=== PATIENT | male | born 1955 | race Caucasian/White ===

== ENCOUNTER → 2016-12-14 | Outpatient (CLI) | payer OTHER ==
--- NOTE | 2016-12-14 11:45 | XR ---
EXAM TYPE: LUMBAR SPINE X RAY SERIES COMPARISON: NONE HISTORY: Lumbar pain TECHNIQUE: 3 views are submitted. FINDINGS: Alignment is anatomic. The pedicles are intact. The transverse processes are intact. There is no s pondylolysis or spondylolisthesis. Hypertrophic changes are seen at all levels. Severe degenerative disc disease L2-3 and L5-S1 with multilevel facet arthropathy. Moderate degenerative disc disease at all remaining levels. IMPRESSION: 1. Multilevel moderate to severe degenerative disc disease with facet arthropathy. Correlate with MRI as clinically warranted..
== END | disposition home or self-care (01) ==
LOC: RADXRMAIN 10:43
PROVIDERS: ATTEND Family Medicine
DX: M51.36 Other intervertebral disc degeneration, lumbar region (principal); M12.88 Other specific arthropathies, not elsewhere classified, other specified site
CPT/HCPCS: 72100

== ENCOUNTER → 2021-01-29 | Outpatient (CLI) | payer MEDICARE ==
--- NOTE | 2021-01-30 22:21 | MR ---
EXAMINATION TYPE: MR lumbar spine wo con DATE OF EXAM: 01/29/2021 COMPARISON: None HISTORY: Chronic LBP. CONTRAST: 0 mL intravenous Gadavist. TECHNIQUE: Multiplanar, multisequence images of the lumbar spine were acquired. FINDINGS: Cord terminates at the T12-L1 level. L5-S1: There is loss of disc height is level. Minimal retrolisthesis of L5 on S1 is present. Disc unc overing is present with mild anterior thecal sac compression. No AP spinal canal stenosis present. Fa cet hypertrophy is present, greater on the right than the left. Ligamentum flavum laxity is present. This is contributing to severe right foraminal stenosis and severe left foraminal stenosis. No AP spi nal canal or lateral canal stenosis is present. L4-L5: There is a large central disc herniation with moderate tor significant anterior thecal sac com pression. This is narrowing the AP spinal canal by 50%. Facet hypertrophy with ligamentum flavum laxi ty is impinging the lateral recesses. Correlate with L5 radicular symptoms. There is central disc he rniation and loss of disc height. Disc herniation extends inferiorly. L3-L4: Broad-based disc bulge is present with anterior thecal sac contact. Right and left far lateral disc bulging is present. Neural foramen have moderate narrowing slightly greater on the left. No AP spinal canal stenosis is present. There is loss of disc height at this level. L2-L3: Loss of disc height is present. There is residual disc bulge with anterior thecal sac contact. No AP spinal canal stenosis is present. Mild foraminal narrowing is present. L1-L2: No significant disc bulge or disc herniation. No spinal canal stenosis. No foraminal stenosi s. Facet hypertrophy is present greater on the left. No significant thecal sac impression is evident . Disc height appears preserved. T12-L1: No significant disc bulge or disc herniation. No spinal canal stenosis. No foraminal stenos is. . IMPRESSION: 1. Large central disc herniation L4-5 with central canal narrowing. This is complicated by some infer ior endplate spurring at all 4. AP spinal canal stenosis is not present by measurement although 50% o f the canal is narrowed. 2. Residual disc changes L2-3 through L5-S1 have anterior thecal sac flattening remaining disc levels . 3. Foraminal stenosis to the lower lumbar spine appears severe at multiple levels discussed above. Co rrelate with radicular symptoms.
== END | disposition home or self-care (01) ==
LOC: RADMRIMAIN 21:30
PROVIDERS: ATTEND Orthopaedic Surgery Orthopaedic Surgery of the Spine
DX: M48.061 Spinal stenosis, lumbar region without neurogenic claudication (principal); M51.26 Other intervertebral disc displacement, lumbar region
CPT/HCPCS: 72148

== ENCOUNTER → 2021-02-26 | Outpatient (CLI) | payer MEDICARE ==
[2021-02-26 12:28] VITALS: TEMP 98.4
[2021-02-26 12:38] VITALS: BP 182/116; PULSE 87; RESP 18
--- NOTE | 2021-02-26 12:51 | P.PAINCN ---
History of Present Illness - Reason for Consult Consult date: 02/26/21 - History of Present Illness This is a 65 years old male with a chronic history of severe low back pain, addition to the right lower extremity patient diagnosed with lumbar doses with lumbar facet arthropathy, lumbar herniated disc disease, she had multiple pain interventions procedure done by Dr. Burroughs, [facility] ,and he had some pain relief after the radiofrequency, patient reported that currently h is pain is mostly in the low back area is constant and increases with any activity, confusion or the quality of life and preventing him from doing activities of daily livings, he denies any fever or night sweats but he denies any motor or sensory deficit, he denies any change in bowel movement or urination, Past Medical History Past Medical History: Hyperlipidemia, Hypertension History of Any Multi-Drug Resistant Organisms: None Reported Past Surgical History: No Surgical Hx Reported Past Anesthesia/Blood Transfusion Reactions: No Reported Reaction Smoking Status: Former smoker Medications and Allergies Home Medications Medication Instructions Recorded Confirmed Type Atorvastatin [Lipitor] 10 mg PO DAILY 02/26/21 02/26/21 History Finasteride [Proscar] 5 mg PO DAILY 02/26/21 02/26/21 History amLODIPine [Norvasc] 2.5 mg PO DAILY 02/26/21 02/26/21 History Physical Exam Vitals: Vital Signs Temp Pulse Resp BP Pulse Ox 02/26/21 12:23 98.4 F 87 18 182/116 94 L Intake and Output 02/25/21 02/26/21 02/26/21 22:59 06:59 14:59 Other: Weight 124.284 kg Physical Examinations : -Constitutiona : Cooperative , not in acute distress . -HEENT : nech : supple , no Lymphadenopathy , normal thyroid size . : eyes : no ptosis , no icterus, no photophobia . - neurologic : Cranial nerve II to XII intact , no focal neurological deffecit . -psychatric : alert , oriented X 3 , appropriate affect , intact judgment and insight . -Lymphatic : no Lymphadenopathy . - musculoskeltal : . Lumber spine moter stegnth lower extremities ,thigh and legs 5/5 Right side , 5/5 Left side deep tendon reflexes : normal Knee Jerk , normal ankle Jerk lumber facet Loading Test =positive Right , positive Left Range of motion of the lumbar spine Flexion 30 degrees, extension 10 degrees strait leg raising test = negative bilaterally Fabere test= negative bilaterally. mild tenderness over the Sacroiliac joint on the Right , and Left sides Results Comments: MRI of the lumbar spine= lumbar spondylosis and lumbar facet arthropathy, L4-L5 large central herniated disc Assessment and Plan Plan: Assessment and plan=1-lumbar spondylosis with facet arthropathy without myelopathy. 2-lumbar herniated disc disease. HE HAD excellent pain relief after RFA of the medial branch lumbar area, patient could benefit from repeat RFA medial branches at L2,L3,L4,L5 bilaterally Time with Patient: Greater than 30 PQRS Measure Charge Sheet Measure #130: Documentation of Current Meds in Medical Chart: Patient's medications documented in chart Measure #226: Tobacco Use: Screen & Cessation Intervention: Pt not a tobacco user Measure #111: Pneumonia Vaccination: Pneumococcal vaccine administered or previously received Measure #47: Advance Care Plan: Advance care planning discussed & documented, pt chose/unable to give Measure #412: Opioid Treatment Agreement: No documentation of signed opioid treatment agreement Measure #408: Opioid Therapy Follow-up Evaluation: Patient had NO f/u eval minimum every 3 months during opioid therapy Measure #317: Preventitive Care & Scrn High Bld Press & F/U: Pre-hypertensive or hypertensive BP documented, pt will f/u with PCP Measure #128: Body Mass Index (BMI) Screening & Follow-up: BMI documented ABOVE normal parameters - f/u documented Measure #131: Pain Assessment & Follow-up: Pain positive & plan documented, Follow-up scheduled Measure #431: Unhealthy Alcohol Use Preventative Care & Scrn: Patient not identified as an unhealthy alcohol user PQRS Narrative: Blood Pressure 182/116 Pain Intensity [Lower Back] 7 Scale Used Numeric (1 - 10) Hx Alcohol Use (MH) Yes Home Medications: Ambulatory Orders Atorvastatin [Lipitor] 10 mg PO DAILY 02/26/21 Finasteride [Proscar] 5 mg PO DAILY 02/26/21 amLODIPine [Norvasc] 2.5 mg PO DAILY 02/26/21
== END | disposition home or self-care (01) ==
LOC: PNWHC3 11:45
PROVIDERS: ATTEND Specialist
DX: M51.26 Other intervertebral disc displacement, lumbar region (principal); M47.816 Spondylosis without myelopathy or radiculopathy, lumbar region; M46.96 Unspecified inflammatory spondylopathy, lumbar region; I10 Essential (primary) hypertension; E78.5 Hyperlipidemia, unspecified; Z79.899 Other long term (current) drug therapy; Z87.891 Personal history of nicotine dependence; Z98.890 Other specified postprocedural states
CPT/HCPCS: 99211

== ENCOUNTER → 2021-03-31 | Outpatient (CLI) | payer MEDICARE ==
--- NOTE | 2021-03-31 12:26 | P.PAINPG ---
Subjective Progress Note Date: 03/31/21 This is a 65 years old male with a chronic history of severe low back pain, addition to the right lower extremity patient diagnosed with lumbar doses with lumbar facet arthropathy, lumbar herniated disc disease, she had multiple pain interventions procedure done by Dr. Burroughs, [facility] ,and he had some pain relief after the radiofrequency, patient reported that currently his pain is mostly in the low back area is constant and increases with any activity, confusion or the quality of life and preventing him from doing activities of daily livings, he denies any fever or night sweats but he denies any motor or sensory deficit, he denies any change in bowel movement or urination. Our plan last visit was to schedule him for repeat RFA as he had in the past. Hasn't been scheduled yet. Here for followup today. Her slowly insurance denied the procedure. It was scheduled for 3 levels bilaterally. Patient has had this with great success in the past. He is still attempting conservative therapy and for physical therapy and home exercises. Would like to proceed his ablations as soon as he can. His last RFA's gave him 90-100% relief. Takes ibuprofen as needed. Medications and Allergies Physical Examinations : -Constitutiona : Cooperative , not in acute distress . -HEENT : nech : supple , no Lymphadenopathy , normal thyroid size . : eyes : no ptosis , no icterus, no photophobia . - neurologic : Cranial nerve II to XII intact , no focal neurological deffecit . -psychatric : alert , oriented X 3 , appropriate affect , intact judgment and insight . -Lymphatic : no Lymphadenopathy . - musculoskeltal : . Lumber spine moter stegnth lower extremities ,thigh and legs 5/5 Right side , 5/5 Left side deep tendon reflexes : normal Knee Jerk , normal ankle Jerk lumber facet Loading Test =positive Right , positive Left Range of motion of the lumbar spine Flexion 30 degrees, extension 10 degrees strait leg raising test = negative bilaterally Fabere test= negative bilaterally. mild tenderness over the Sacroiliac joint on the Right , and Left sides Results Comments: MRI of the lumbar spine= lumbar spondylosis and lumbar facet arthropathy, L4-L5 large central herniated disc Assessment and Plan Plan: Assessment and plan=1-lumbar spondylosis with facet arthropathy without myelopathy. 2-lumbar herniated disc disease. HE HAD excellent pain relief after RFA of the medial branch lumbar area, patient could benefit from repeat RFA medial branches at right side L3-4 L4-5 and L5-S1 followed by the left side after. I have spent 26 minutes on patient care today. The time was used to review the medical records including relevant urine studies and prescription history, review of the available imaging, evaluation and examination of the patient, coordination of care with the medical staff and if applicable referring physicians, as well as creation of the medical record. PQRS Measure Charge Sheet Measure #130: Documentation of Current Meds in Medical Chart: Patient's medications documented in chart Measure #226: Tobacco Use: Screen & Cessation Intervention: Pt not a tobacco user Measure #111: Pneumonia Vaccination: Pneumococcal vaccine administered or previously received Measure #47: Advance Care Plan: Advance care planning discussed & documented, pt chose/unable to give Measure #412: Opioid Treatment Agreement: No documentation of signed opioid treatment agreement Measure #408: Opioid Therapy Follow-up Evaluation: Patient had NO f/u eval minimum every 3 months during opioid therapy Measure #317: Preventitive Care & Scrn High Bld Press & F/U: Pre-hypertensive or hypertensive BP documented, pt will f/u with PCP Measure #128: Body Mass Index (BMI) Screening & Follow-up: BMI documented ABOVE normal parameters - f/u documented Measure #131: Pain Assessment & Follow-up: Pain positive & plan documented, Follow-up scheduled Measure #431: Unhealthy Alcohol Use Preventative Care & Scrn: Patient not identified as an unhealthy alcohol user PQRS Narrative: PQRS Measure Charge Sheet PQRS Narrative: Pain Intensity [Lower Back] 9 Scale Used Numeric (1 - 10) Hx Alcohol Use (MH) Yes Home Medications: Ambulatory Orders Atorvastatin [Lipitor] 10 mg PO DAILY 02/26/21 Finasteride [Proscar] 5 mg PO DAILY 02/26/21 amLODIPine [Norvasc] 2.5 mg PO DAILY 02/26/21 Controlled Substance Measures - Controlled Substance Measures Is patient prescribed a controlled substance at discharge?: No
[2021-03-31 12:32] VITALS: BP 171/97; PULSE 69; RESP 18; TEMP 98.4
== END | disposition home or self-care (01) ==
LOC: PNWHC3 12:00
PROVIDERS: ATTEND Anesthesiology
DX: M47.896 Other spondylosis, lumbar region (principal); M46.96 Unspecified inflammatory spondylopathy, lumbar region; M51.26 Other intervertebral disc displacement, lumbar region
CPT/HCPCS: 99211

== ENCOUNTER 2021-06-06 08:40 | Day surgery (SDC) | payer MEDICARE ==
[2021-06-05 10:15] VITALS: BMI 38.9
[~2021-06-06 08:40] MED LIST: LACTATED RINGERS 1,000 ML IV SCH
[2021-06-06 09:05] VITALS: TEMP 97.6
[2021-06-06] MEDS ORDERED: TRIAMCINOLONE ACETONIDE 40 MG/ML 1 ML VIAL ONE (09:38)
[2021-06-06] MEDS ORDERED: ROPIVACAINE 5MG/ML 20ML VIAL ONE (09:38)
[2021-06-06] MEDS ORDERED: MIDAZOLAM 2 MG/2 ML VIAL ONE (09:38)
[2021-06-06] MEDS ORDERED: fentaNYL (PF) 50 MCG/ML 2 ML AMP ONE (09:38)
--- NOTE | 2021-06-06 09:59 | P.PCN ---
Date of Procedure: 06/06/21 Procedure(s) Performed: PREOPERATIVE DIAGNOSIS: 1-Lumbar Spondylosis with Facet Arthropathy without myelopathy. 2- Lumber degenerative disc disease. POSTOPERATIVE DIAGNOSIS: 1- Lumbar Spondylosis with Facet Arthropathy without myelopathy. 2- Lumber degenerative disc disease. PROCEDURES : Right Radiofrequency thermocoagulation, L3 , L4 , and L5 medial branch, with fluoroscopic guidance (fluoroscopy images available in the radiology department) ( to denervate the facet joint at Right L4-5 ,and L5-S1 levels ). ANESTHESIA: Monitered anesthesia care . EBL: Minimal PROCEDURE INDICATION: The patient with low back pain secondary to lumbar facet arthropathy who had more than 50% relief of her pain with previous diagnostic lumbar medial branch block with bupivacaine. PROCEDURE DESCRIPTION / TECHNIQUE: The patient was seen and identified in the preoperative area. Risks, benefits, complications, including but not limited to risk of infection ,bleeding , allergic reactions to the medications and no complete pain releife , and alternatives were discussed with the patient, the patient agreed to proceed with the procedure and signed the consent. IV was started. Vital signs remained stable throughout the procedure. Patient was taken to the OR and time out was completed. The patient was placed in the prone position on the procedure table. The lumber area was prepped and draped in the usual sterile fashion. . Vital signs were closely monitored during the procedure .IV sedation was used during the procedure to decrease patients anxiety. Using AP and then oblique fluoroscopy, the ``eye of the Allen dog corresponding to the connection between the superior and transverse articular processes of right L3, L4, and L5 were identified, marked, and localized with 1% lidocaine. Subsequently, a 18 -cx radiofrequency cannula with a 10-mm active tip was advanced guided by fluoroscopy to each of the``eyes of the Allen dog at right L3, L4, and L5. Each site then underwent sensory testing at 50 Hz and 0 to 1 volt and motor testing at 2.5 Hz and 0 to 3 volt with local stimulation, but no radicular symptoms down the legs. Thereafter each sites underwent radiofrequency thermocoagulation at 80 degrees celsius for 90 seconds after injecting 0.5 ml of PF Ropivacaine 1ml, then after the thermocoagulation done , 1 ml of the block solution containing Kenalog 40 mg and 3 ml of Ropivacaine 0.5% was injected at the right L3 , L4 , and L5 , levels after negative aspiration of CSF and blood and with no paresthesias. Cannulas were retracted while injecting lidocaine 1% until the needle is out. . At the end of the procedure, the skin was cleansed and bandages were applied. COMPLICATIONS: No acute complications. DISPOSITION / PLANS: The patient was placed in a supine position and transferred to the recovery area in a stable condition for observation and was discharged from the recovery room after meeting discharge criteria. Home discharge instructions given to the patient by the staff. The patient was reexamined prior to discharge. The patient will schedule a follow up in the clinic in 2-4 weeks.
[2021-06-06] MEDS ORDERED: IV FLUID CONTINUATION 750 ML IV ONE (10:03)
[2021-06-06 10:21] VITALS: BP 130/84; PULSE 66; RESP 16
--- NOTE | 2021-06-06 10:21 | FL ---
Fluoroscopy INDICATION: Pain FINDINGS: Images obtained: 3. IMPRESSIONS: 1. Documentation of fluoroscopy.
== END 2021-06-06 10:44 | disposition home or self-care (01) ==
LOC: ORPAIN 08:40
PROVIDERS: ATTEND Specialist
DX: M47.816 Spondylosis without myelopathy or radiculopathy, lumbar region (principal); M51.36 Other intervertebral disc degeneration, lumbar region; I10 Essential (primary) hypertension; E78.5 Hyperlipidemia, unspecified; E66.9 Obesity, unspecified; Z68.39 Body mass index [BMI] 39.0-39.9, adult
CPT/HCPCS: 64635; 64636; J2250; J3301; J3010; J2795

== ENCOUNTER 2021-06-27 10:24 | Day surgery (SDC) | payer MEDICARE ==
[2021-06-25 11:56] VITALS: BMI 38.9
[2021-06-27 10:42] VITALS: TEMP 97.1
[2021-06-27] MEDS ORDERED: LIDOCAINE 1% (10MG/ML) FOR IV START INTRADERMA ONE (10:54)
[2021-06-27] MEDS ORDERED: MIDAZOLAM 2 MG/2 ML VIAL ONE (10:56)
[2021-06-27] MEDS ORDERED: ROPIVACAINE 5MG/ML 20ML VIAL ONE (10:56)
[2021-06-27] MEDS ORDERED: fentaNYL (PF) 50 MCG/ML 2 ML AMP ONE (10:56)
[2021-06-27] MEDS ORDERED: TRIAMCINOLONE ACETONIDE 40 MG/ML 1 ML VIAL ONE (10:56)
--- NOTE | 2021-06-27 11:23 | P.PCN ---
Date of Procedure: 06/27/21 Description of Procedure: Pre- and Post-operative Diagnosis: Lumbar facet arthropathy, and lumbar spon dylosis without myelopathy. Procedure: Left side L4-5 radiofrequency thermocoagulation of medial branch under fluoroscopic guidance Left side L5-S1 dorsal ramus radiofrequency thermocoagulation under fluoroscopic guidance Surgeon: Judy Villarreal Anesthesia: Local: 1% Lidocaine, IV sedation : Midazolam 2 mg, and fentanyl 100 micrograms. Complications: None Estimated blood loss: None. Specimen removed: None Fluoroscopic image: Saved to patient electronic medical records. Indications for Procedure: The patient is well known to pain clinic for his chronic low back pain management. The lumbar facet loading test was positive with a clinical diagnosis of lumbar facet arthropathy. Patient had marked decrease in pain after the diagnostic medial branch procedure. Came here for radiofrequency ablation for longer pain relief. PROCEDURE DESCRIPTION: The patient was seen and identified in the preoperative area. Risks, benefits, complications, and alternatives were discussed with the patient. The patient agreed to proceed with the procedure and signed the consent. IV was started. Vital signs were stable. Patient was taken to the procedure room and timeout was completed. The patient was placed in the prone position on procedure table and a pillow was placed under the abdomen to reduce lumbar lordosis. The lumbosacral area was prepped and draped in the usual sterile fashion. Critical pause was taken. Vital signs were closely monitored during the procedure. The fluoroscopic camera was placed in the anteroposterior position to identify the junction of superior articular process and its corresponding injection with its transverse process of L4, L5, S1, which were anesthetized with 1% lidocaine. We used 20-gauge 100-mm curved, sharp radiofrequency cannula with 10- mm active tip for the procedure. The first cannula was guided by fluoroscopy to the S1 superior articular process and its corresponding junction with its ala. The second cannula was guided by fluoroscopy into the L5 superior articular process and its corresponding junction with its transverse process and pedicle. The third cannula was guided by fluoroscopy into the L4 SAP and its corresponding junction with its transverse process and its pedicle. After confirmation of needle tip position on oblique view, each site underwent motor testing at 2 Hz and 0 to 2.5 volts, and there was good motor stimulation in the back and no radicular symptoms or paresthesias. After confirmation of motor testing, each site was infiltrated with 0.5 mL at each level of block solution. Block solution contained 4 mL of 0.5% ropivacaine preservative free mixed with 40 MG of Kenalog. At this time, each site was ablated using continuous radiofrequency mode at 80 degrees Celsius for 90 seconds at each level. At the end of the procedure, each needle was retracted approximately 1 cm and the skin was infiltrated with 0.25% bupivacaine preservative free 1 ml at each site. Skin was cleansed and bandages were applied. Disposition : The patient tolerated the procedure very well. The patient was transferred to the recovery room and remained stable until discharged home. The patient was given detailed discharge instructions for infection, bleeding, and increased pain at the injection site, and was advised to seek immediate medical attention should significant side effects develop. The patient will be scheduled with Pain Clinic within 4 weeks.
[2021-06-27] MEDS ORDERED: IV FLUID CONTINUATION 1,000 ML IV ONE (11:24)
[2021-06-27] MEDS ORDERED: LACTATED RINGERS 1,000 ML IV SCH (11:30)
[2021-06-27 11:59] VITALS: BP 123/77; PULSE 64; RESP 18
--- NOTE | 2021-06-27 14:18 | FL ---
EXAMINATION TYPE: FL guided pain mgmt statistic DATE OF EXAM: 06/27/2021 HISTORY: Fluoroscopy time 12 seconds of fluoroscopy provided. IMPRESSION: 1. Fluoroscopy time.
== END 2021-06-27 12:06 | disposition home or self-care (01) ==
LOC: ORPAIN 10:24
DX: M47.816 Spondylosis without myelopathy or radiculopathy, lumbar region (principal); G89.29 Other chronic pain
CPT/HCPCS: 64635; 64636; J2250; J3301; J3010; J2795